=== PATIENT | male | born 1985 | race Hispanic/Latino ===

== ENCOUNTER 2017-08-04 15:45 | Outpatient (CLI) | payer OTHER ==
--- NOTE | 2017-08-04 16:23 | ULT ---
RIGHT GROIN ULTRASOUND: HISTORY: Soft tissue ultrasound. Evaluation for hernia. TECHNIQUE: Multiple longitudinal and transverse images of the right groin are obtained using a Multi-Hertz linea r array transducer. FINDINGS: Real-time and color-flow images demonstrate no definite evidence of masses or lesions. No definite v isible evidence of a right inguinal hernia is seen. If there is concern for possible hernia, correla tion with CT of the pelvis with oral and IV contrast may be of use. IMPRESSION: No definite evidence of hernia visualized on right groin sonography. POS: YANCY
== END 2017-08-04 15:46 | disposition home or self-care (01) ==
LOC: SCSULT 15:45
PROVIDERS: ATTEND Nurse Practitioner Family
DX: Z03.89 Encounter for observation for other suspected diseases and conditions ruled out (principal)
CPT/HCPCS: 76999

== ENCOUNTER 2017-08-18 08:46 | Outpatient (CLI) | payer OTHER ==
[2017-08-18 10:23] LABS: #Basophils 0.1 thou/uL (0.0-0.2); #Eosinphils 0.1 thou/uL (0.0-0.7); #Lymphocytes 2.3 thou/uL (1.20-3.40); #Monocytes 0.4 thou/uL (0.11-0.59); #Neutrophils 3.6 thou/uL (1.40-6.50); %Basophils 1.3 % (0.0-1.0); %Eosinophils 1.6 % (0.0-10.0); %Lymphocytes 35.1 % (21.0-51.0); %Monocytes 6.6 % (0.0-10.0); %Neutrophils 55.4 % (42.0-75.0); Hemoglobin 16.4 g/dL (14.0-18.0); Mean Corpuscular HGB CONC 34.4 g/dL (32.0-36.0); Mean Platelet Volume 7.6 fL (7.4-10.4); Platelet Count 253 thou/uL (130-400); RBC Distribution Width 11.8 % (11.5-14.5); Red Blood Cell (RBC) Count 5.13 mill/uL (4.70-6.10); White Blood Cell (WBC) Count 6.5 thou/uL (4.8-10.8)
[2017-08-18 10:41] LABS: Anion Gap 10 mmol/L (10-20); BUN (Urea Nitrogen) 17 mg/dL (8.9-20.6); Calc. Creatinine Clearance 0 mL/min (70-130); Calcium 9.1 mg/dL (7.8-10.44); Carbon Dioxide 28 mmol/L (22-29); Chloride 105 mmol/L (98-107); Estimated GFR-MDRD Greater than 90; Glucose 94 mg/dL (70-105); Potassium 4.2 mmol/L (3.5-5.1); Sodium 139 mmol/L (136-145)
== END 2017-08-18 08:47 | disposition home or self-care (01) ==
LOC: LABBT 08:46
PROVIDERS: ATTEND Surgery
DX: Z01.812 Encounter for preprocedural laboratory examination (principal); K40.90 Unilateral inguinal hernia, without obstruction or gangrene, not specified as recurrent
CPT/HCPCS: 80048; 85025

== ENCOUNTER 2017-08-22 09:16 | Day surgery (SDC) | payer OTHER ==
[2017-08-22] MEDS ORDERED: CEFAZOLIN/Water 2 GM/20 ML SYRINGE ONE (09:58)
[2017-08-22] MEDS ORDERED: Scopolamine 1.5 mg/72 hour Patch ONE (09:58)
[2017-08-22] MEDS ORDERED: Midazolam HCl 2 mg/2 ml Vial ONE (09:58)
[2017-08-22 10:09] VITALS: BMI 32.8
[2017-08-22] MEDS ORDERED: Fentanyl 100 MCG/2 ML VIAL ONE ×2 (10:15→13:35)
[2017-08-22] MEDS ORDERED: Bupivacaine/Epinephrine 0.25% 30 ML VIAL ONE (11:03)
[2017-08-22] MEDS ORDERED: Glycopyrrolate 0.2 MG/ML 5 ML SYRINGE ONE (13:43)
[2017-08-22] MEDS ORDERED: Ondansetron HCl/PF 4 MG/2 ML Vial ONE (13:43)
[2017-08-22] MEDS ORDERED: diphenhydrAMINE 50 MG/ML VIAL ONE (13:43)
[2017-08-22] MEDS ORDERED: Lidocaine 1% PF 5 ML VIAL ONE (13:43)
[2017-08-22] MEDS ORDERED: PROPOFOL 200 MG/20 ML VIAL ONE (13:43)
[2017-08-22] MEDS ORDERED: Dexamethasone 20 MG/5 ML VIAL ONE (13:43)
[2017-08-22] MEDS ORDERED: Metoclopramide HCl 10 MG/2 ML VIAL ONE (13:43)
[2017-08-22] MEDS ORDERED: Ketorolac Tromethamine 30 MG/ML VIAL ONE (13:43)
[2017-08-22] MEDS ORDERED: Promethazine HCl 25 MG/ML VIAL IM/IV PRN (14:11)
[2017-08-22] MEDS ORDERED: Ondansetron HCl/PF 4 MG/2 ML Vial IVP PRN (14:11)
--- NOTE | 2017-08-26 13:13 | OP ---
DATE OF PROCEDURE: 08/22/2017 PREOPERATIVE DIAGNOSIS: Right inguinal hernia. POSTOPERATIVE DIAGNOSIS: Right inguinal hernia. PROCEDURE: Da [facility] laparoscopic right inguinal hernia repair with mesh, 3DMax large. SURGEON: Alton Wilburn M.D. ANESTHESIA: General. ESTIMATED BLOOD LOSS: Minimal. COMPLICATIONS: None. SPECIMEN: None. FINDINGS: Right inguinal hernia. TECHNIQUE: The patient was taken to the operating room, placed supine on the table. After general a nesthetic was obtained, a Yin was placed. The abdomen was shaved, prepped and draped in a sterile fashion. Curved incision made above the umbilicus. Cautery used to dissect down to and score the fa scia. Abdominal cavity entered bluntly using a Sabine clamp. An 11 mm Optiview trocar was placed and high-flow pneumoperitoneum was obtained. Left and right 8 mm robot trocars were placed. The patien t was placed in Trendelenburg position. All ports were docked to the robot. Surgeon goes to the [facility]. The peritoneum in the right lower quadrant was taken down above the right inguinal region. Th e preperitoneal space was bluntly dissected the patient pubic tubercle medially to the anterior super ior iliac crest laterally, iliopectineal line is fully exposed. There was no direct hernia. The ind irect hernia sac is dissected away from the other cord structures as they are skeletonized way high u p onto the peritoneum. There was no femoral hernia. 3DMax right-sided large mesh brought into the s terile field, placed into the abdomen through the camera port. The end labeled medial aspect is plac ed over pubic tubercle. The mesh is sewn via pubic tubercle and to the posterior fascia using 2-0 Vi cryl. No sutures were placed in triangle of pain. Peritoneum is reapproximated using running 3-0 St ratafix. All port sites are infiltrated using local anesthetic. All ports were removed under camera visualization. Pneumoperitoneum was let down. PDS used to close the fascial defect below the umbil icus. All incisions were irrigated and closed using 4-0 Monocryl and Dermabond. The patient was en route to recovery in stable condition. All sponge counts, needle counts, lap counts were correct.
== END 2017-08-22 15:10 | disposition home or self-care (01) ==
LOC: SDC 09:16
PROVIDERS: ATTEND Surgery
PROC: 0YU54JZ Supplement Right Inguinal Region with Synthetic Substitute, Percutaneous Endoscopic Approach (ICD-10-PCS; principal; 2017-08-22)
DX: K40.90 Unilateral inguinal hernia, without obstruction or gangrene, not specified as recurrent (principal); E66.01 Morbid (severe) obesity due to excess calories; Z68.32 Body mass index [BMI] 32.0-32.9, adult; Z88.0 Allergy status to penicillin; Z79.899 Other long term (current) drug therapy
CPT/HCPCS: 96374; C1781; J1100; J1200; J1885; J2001; J2250; J2405; J2704; J2765; J3010

== ENCOUNTER 2022-10-17 19:00 | Outpatient (CLI) | payer OTHER | END 2022-10-17 19:01 | disposition home or self-care (01) | LOC: SLEEPLAB 19:00 | PROVIDERS: ATTEND Internal Medicine | DX: G47.33 Obstructive sleep apnea (adult) (pediatric) (principal) | CPT/HCPCS: 95810 ==